=== PATIENT | female | born 1995 | race Caucasian/White ===

== ENCOUNTER 2023-06-12 10:59 | Emergency (ER) | payer OTHER, SELFPAY ==
[2023-06-12 11:01] VITALS: BP 129/103
--- NOTE | 2023-06-12 11:52 | ED.GENMED ---
History of Present Illness
General
Chief Complaint: Headache
Source: patient
Time Seen by Provider: 06/12/23 11:38
Travel History
Have you had any contact with someone who has COVID-19?: No
Do you have any symptoms of coronavirus? Fever > 100 degrees, chills, cough, shortness of breath, sore throat, loss of taste or smell, muscle aches, or headache?: No
History of Present Illness
History of Present Illness:
This patient is a 27-year-old female who has an established diagnosis of migraines, typically described as loss of vision, numbness, nausea, vomiting, etc. She saw her headache doctor yesterday and was feeling well and was scheduled for a routine
MRI on July 01. However, today around 8 AM patient developed a typical migraine headache. She describes the headache is located in the frontal area associated with nausea, vomiting, phonophobia, photophobia, and difficulty talking because it seems
to make her pain worse. She denies focal paralysis, fever, chills, neck stiffness, or other complaints. This headache was not abrupt in onset or worst of life. Is very consistent with prior migraines.
Past History
Past History
ED Past Medical History: Other (Migraines)
Social History
Tobacco: Non-smoker
Alcohol: None
Drug: None
Phy Exam
Physical Exam
Physical Exam:
GENERAL: Alert , in no apparent distress, laying on her side in obvious discomfort
Patient has requested that exam be deferred until medication given. She has a blanket over her face to avoid the lights. Speech is clear. Lungs are CTA. Skin is warm and well-perfused.
lATER ON:
GENERAL: Alert , in no apparent distress
EYE: pupils equal and reactive, mild obj photophobia
NECK: Supple, no significant adenopathy, moves neck about easily and without hesitation.
ENT: o/p clr, mmm.
CARDIAC: Regular rate and rhythm .
LUNGS: Clear breath sounds bilaterally, no acute respiratory distress, no wheezes/rales/rhonchi
ABDOMEN: Soft, without focal tenderness, no r/g, no cvat
NEUROLOGICAL: Alert and oriented, no focal neuro deficits, f to n nl, motor 5/5, sens intact cn 2-12 intact
SKIN: Warm and dry, skin intact.
MUSCULOSKELETAL: No edema, well perfused.
PSYCH: Normal and appropriate interaction.
Course
Orders/Labs/Results
Orders:
Orders
06/12/23 11:43
Test Result ONCE
06/12/23 11:51
Diphenhydramine [Benadryl] 25 mg IV NOW STA
Metoclopramide [Reglan] 10 mg IV NOW STA
06/12/23 11:53
Complete Blood Count/With Diff Urgent
Comprehensive Metabolic Panel Urgent
HCG, Serum Qualitative Screen Urgent
06/12/23 14:44
Ketorolac [Toradol] 15 mg IV NOW STA
Abnormal Lab Results
06/12/23
11:53
MPV 10.8 H fL
(7.4-10.4)
Absolute Lymphs (auto) 1.1 L 10^3/uL
(1.2-3.4)
Neutrophils % 76.2 H %
(42.2-75.2)
Lymphocytes % 16.5 L %
(20.5-51.1)
Creatinine 0.5 L mg/dL
(0.6-1.0)
Glucose 101 H mg/dl
(70-99)
06/12/23 11:53
06/12/23 11:53
Vital Signs
Initial and Last Documented VS:
Initial Vital Signs
Temp Pulse Resp BP Pulse Ox
97.8 F 60 16 129/103 100
06/12/23 11:01 06/12/23 11:01 06/12/23 11:01 06/12/23 11:01 06/12/23 11:01
Last Documented Vital Signs
Temp Pulse Resp BP Pulse Ox
97.8 F 60 16 129/103 100
06/12/23 11:01 06/12/23 11:01 06/12/23 11:01 06/12/23 11:01 06/12/23 11:01
Update Note
Update Note:
Patient presents to the Emergency Department with __headache
Number and Complexity of Problems Addressed at the Encounter
� Chronic conditions affecting care:
� Acute Exacerbation and/or Progression of Chronic Illness:
� Differential Diagnosis includes: But not limited to migraine, tension headache, hypertensive urgency, etc. etc.
Amount and/or Complexity of Data to be Reviewed and Analyzed
� I performed an independent evaluation of and my interpretation is:
EKG:
CT:
Xrays:
Laboratory Studies: Generally unremarkable
Other:
� Review of other/old records reveals:
� Clinical information was obtained by an independent historian: Friend who was at bedside
� Prescriptions/Medications Considered but not given:
� Further testing considered but not performed:
Risk of Complications and/or Morbidity or Mortality of Patient Management
� Social determinants of health affecting care:
� Discussion with other providers (PCP, Hospitalists, Consultants, etc):
� Escalation of care including admission/observation vs risk of discharge considered: 4:08 PM several reassessments of patient here, she initially slept for some time, now is awake, feels much better, would like to go home, no
new symptoms. No signs of meningismus, no focal neurofindings, etc. Friend who is at bedside will stay with her. Both understand importance of follow-up and reasons return to the ER.
ED Attending Note
-
Portions of this chart may have been created with voice recognition software.� Occasional wrong word or��sound alike� substitutions may have occurred due to the inherent limitations of voice recognition software.
Discharge Plan
Departure
Patient Disposition: Home (Routine Discharge)
Date of Disposition: 06/12/23
Time of Disposition: 16:09
Patient with high blood pressure during this ER visit?: Yes
Condition: Good
Discharge Problem:
Migraine
Instructions: Migraines (DC), BLOOD PRESSURE
Prescriptions:
No Action
ondansetron 4 mg tablet,disintegrating
4 mg PO Q8H PRN (Reason: nausea and vomiting) Qty: 10 0RF
Referrals:
Ismael Harvey CRNP [Family Provider] -
Activity Restrictions/Additional Instructions:
PLEASE CONTACT YOUR NEUROLOGIST (HEADACHE DOCTOR) PROMPTLY FOR FOLLOW UP. IF YOU DEVELOP INCREASING/NEW/RECURRENT HEADACHE, FEVER, VOMITING, NUMBNESS, TINGLING, WEAKNESS, DIZZINESS, NECK PAIN, OR OTHER WORRISOME SIGNS, GO TO THE ER IMMEDIATELY!
Interventions
Interventions:
*Risk Screen - Suicide Last Done: 06/12/23 11:57
*General Assessment Last Done: 06/12/23 11:57
*Neglect/Abuse Screening Last Done: 06/12/23 11:57
*ED COVID-19 Vaccine History Last Done: 06/12/23 11:01
ED- Neurological Assessment Last Done: 06/12/23 11:57
Discharge Date and Time
Print Language: CITIZEN OF [place]
[2023-06-12] MEDS: BENADRYL 25 MG IV (11:56)
[2023-06-12] MEDS: REGLAN 10 MG IV (11:57)
[2023-06-12 12:11] LABS: % Basophils 0.6 % (0-2); % Eosinophils 1.3 % (0-6); % Immature Granulocytes 0.3 % (0-0.5); % Lymphocytes 16.5 % (20.5-51.1); % Monocytes 5.1 % (1.7-9.3); % Neutrophils 76.2 % (42.2-75.2); Absolute Eosinophils 0.1 10^3/uL (0-0.7); Absolute Lymphocytes 1.1 10^3/uL (1.2-3.4); Absolute Monocytes 0.4 10^3/uL (0.1-0.6); Absolute Neutrophils 5.3 10^3/uL (1.4-6.5); Hematocrit 38.6 % (37.0-47.0); Hemoglobin 13.2 g/dL (12.0-16.0); Mean Corp Hgb Conc. 34.2 g/dL (33.0-37.0); Mean Corpuscular Hgb 30.6 pg (27.0-31.0); Mean Corpuscular Volume 89.4 fL (81.0-99.0); Mean Platelet Volume 10.8 fL (7.4-10.4); Nucleated Red Blood Cells % 0 %; Platelet Count 190 10^3/uL (130-400); Red Blood Cell Count 4.32 10^6/uL (4.20-5.40); Red Cell Dist. Width 12.4 % (11.5-14.5); White Blood Cell Count 6.9 10^3/uL (4.8-10.8)
[2023-06-12 12:20] LABS: HCG, Serum Qualitative Screen Negative
[2023-06-12 12:28] LABS: ALT (SGPT) 22 U/L (0-35); AST (SGOT) 30 U/L (14-36); Albumin 4.2 g/dl (3.5-5.0); Alkaline Phosphatase 68 U/L (38-126); Blood Urea Nitrogen 13 mg/dl (7-17); Calcium 9.4 mg/dl (8.4-10.2); Carbon Dioxide 27 mmol/L (22-30); Chloride 106 mmol/L (98-107); Glucose 101 mg/dl (70-99); Sodium 135 mmol/L (135-145); Total Bilirubin 0.4 mg/dl (0.2-1.3); Total Protein 6.8 g/dl (6.3-8.2); eGFR > 60.00
[2023-06-12] MEDS: TORADOL 15 MG IV (14:53)
[2023-06-12 16:24] VITALS: BP 135/77
== END 2023-06-12 16:26 | disposition home or self-care (01) ==
LOC: EMR 10:59
PROVIDERS: EMERGENCY PHYSICIAN Emergency Medicine; FAMILY PHYSICIAN Nurse Practitioner Family
DX: G43.909 Migraine, unspecified, not intractable, without status migrainosus (principal); R03.0 Elevated blood-pressure reading, without diagnosis of hypertension
CPT/HCPCS: 99284; 96374; 96375 ×2; 80053; 84703; 85025